=== PATIENT | female | born 1950 | race Caucasian/White ===

== ENCOUNTER 2022-01-01 12:06 | Inpatient (IN) | payer OTHER, MEDICARE ==
[2022-01-01] VITALS (7 sets, daily range): BP systolic 134–168; BP diastolic 74–133
[~2022-01-01] VITALS: Ht 157.5 cm; Wt 94.8 kg
[2022-01-01] MEDS ORDERED: SODIUM CHLORIDE 0.9% 1,000 ML IV ONE (12:30)
[2022-01-01] MEDS ORDERED: DILTIAZEM 125MG/125ML PMX 125 ML IV PRN (12:45)
[2022-01-01 12:58] LABS: BASOPHILS % 0.7 % (0.0-2.0); EOSINOPHILS % 0.4 % (0.0-5.0); HEMATOCRIT. 45.7 % (36.0-48.0); HEMOGLOBIN. 14.6 g/dL (12.0-16.0); LYMPHOCYTES % 9.9 % (20.0-50.0); MEAN CORPUSCULAR HEMOGLOBIN 32.6 pg (28.0-32.0); MEAN CORPUSCULAR VOLUME 102.1 fL (81.0-99.0); MEAN PLATELET VOLUME 7.4 fl (7.4-10.4); PLATELET 341 x1000/uL (130-400); RED BLOOD CELL COUNT 4.48 mill/uL (4.2-5.4); RED CELL DISTRIBUTION WIDTH 14.1 % (11.6-14.6)
[2022-01-01 13:14] LABS: CHLORIDE 108 mEq/L (98-107)
[2022-01-01 13:28] LABS: T4 FREE 1.32 ng/dL (0.76-1.46)
[2022-01-01] MEDS ORDERED: AMIODARONE HCL 900 MG in DEXT 5% WATER 482 ML IV PRN (14:45)
[2022-01-01] MEDS ORDERED: ENOXAPARIN 40MG/0.4ML SYR SUBCUT SCH (17:00)
[2022-01-01] MEDS ORDERED: MORPHINE SULFATE 2 MG/ML CPJ (NOT FOR IM USE) IV PRN (17:00)
[2022-01-01] MEDS ORDERED: IPRATROPIUM/ALBUTEROL 0.5-3(2.5)MG/3ML NEB HHN PRN (17:00)
[2022-01-01] MEDS ORDERED: LORAZEPAM 0.5MG TABLET PO PRN (17:00)
[2022-01-01] MEDS ORDERED: CLONIDINE 0.1MG TABLET PO PRN (17:00)
[2022-01-01] MEDS ORDERED: MAGNESIUM/ALUMINUM HYDROXIDE/SIMETHICONE 30ML UDC PO PRN (17:00)
[2022-01-01] MEDS ORDERED: ONDANSETRON HCL 4MG/2ML INJ IV PRN (17:00)
[2022-01-01] MEDS ORDERED: ACETAMINOPHEN 325MG TABLET PO PRN ×2 (17:00)
[2022-01-01] MEDS ORDERED: IOHEXOL-350 100 ML BOTTLE ONE (17:00)
[2022-01-01] MEDS ORDERED: HYDROCODONE/ACETAMINOPHEN 5/325MG TABLET PO PRN (17:00)
[2022-01-01] MEDS ORDERED: DOCUSATE SODIUM 100MG CAPSULE PO PRN (17:00)
[2022-01-01] MEDS ORDERED: ACETAMINOPHEN 650MG SUPP PR PRN ×2 (17:00)
[2022-01-01] MEDS ORDERED: GUAIFENESIN 200MG/10ML SUGAR FREE UDC PO PRN (17:00)
[2022-01-01] MEDS: ENOXAPARIN 30MG/0.3ML SYR SUBCUT SCH (18:15)
[2022-01-01] MEDS: AMIODARONE HCL 900 MG in DEXT 5% WATER 482 ML IV PRN (19:04)
[2022-01-02] VITALS (12 sets, daily range): BP systolic 89–151; BP diastolic 62–97
[2022-01-02] MEDS: AMIODARONE HCL 900 MG in DEXT 5% WATER 482 ML IV PRN (05:30)
[2022-01-02] MEDS: ENOXAPARIN 30MG/0.3ML SYR SUBCUT SCH (05:31)
[2022-01-02 06:04] LABS: CHLORIDE 110 mEq/L (98-107)
[2022-01-02 06:24] LABS: CREATINE KINASE 76 IU/L (26-192); HDL CHOLESTEROL 41 mg/dL (40-59)
[2022-01-02 06:36] LABS: LDL CHOLESTEROL 115 mg/dL (5-100)
[2022-01-02 06:45] LABS: BASOPHILS % 0.5 % (0.0-2.0); EOSINOPHILS % 0.7 % (0.0-5.0); HEMATOCRIT. 41.4 % (36.0-48.0); LYMPHOCYTES % 13.5 % (20.0-50.0); MEAN CORPUSCULAR HEMOGLOBIN 32.9 pg (28.0-32.0); MEAN CORPUSCULAR VOLUME 97.5 fL (81.0-99.0); MEAN PLATELET VOLUME 8.2 fl (7.4-10.4); MONOCYTES % 9.2 % (2.0-8.0); NEUTROPHILS % 76.1 % (40.0-76.0); PLATELET 287 x1000/uL (130-400); RED BLOOD CELL COUNT 4.24 mill/uL (4.2-5.4); RED CELL DISTRIBUTION WIDTH 13.4 % (11.6-14.6)
[2022-01-02] MEDS ORDERED: DILTIAZEM HCL 5MG/ML 5ML VIAL IV PRN (08:15)
[2022-01-02] MEDS: ASPIRIN 81MG EC TABLET PO SCH (08:30)
[2022-01-02] MEDS ORDERED: DILTIAZEM HCL 30MG TABLET PO SCH (09:00)
[2022-01-02] MEDS ORDERED: DIGOXIN 500MCG/2ML AMP IV PRN (10:15)
[2022-01-02] MEDS ORDERED: FUROSEMIDE 40MG/4ML VIAL IVP SCH (10:30)
[2022-01-02] MEDS ORDERED: ENOXAPARIN 80MG/0.8ML SYR SUBCUT NR (10:45)
[2022-01-02] MEDS: SPIRONOLACTONE 25MG TABLET PO SCH (11:05)
[2022-01-02] MEDS: METOPROLOL TARTRATE 50MG TABLET PO SCH ×2 (11:06→21:42)
[2022-01-02 13:10] LABS: INR 1.1; PROTHROMBIN TIME 11.6 sec (9.6-11.0)
[2022-01-02] MEDS ORDERED: NALOXONE HCL 0.4MG/ML VIAL IV PRN (13:15)
[2022-01-02] MEDS: ENOXAPARIN 100MG/ML SYR SUBCUT SCH (21:27)
[2022-01-02] MEDS: AMIODARONE HCL 200 MG TABLET PO SCH (21:28)
[2022-01-03] VITALS (13 sets, daily range): BP systolic 106–142; BP diastolic 67–96
[2022-01-03] MEDS: LEVOTHYROXINE SODIUM 75MCG TABLET PO SCH (06:15)
[2022-01-03 06:23] LABS: CLARITY URINE CLEAR (CLEAR); COLOR URINE DARK YELLOW (YELLOW); KETONES URINE TRACE (NEGATIVE); LEUKOCYTE ESTERASE URINE NEGATIVE (NEGATIVE); NITRITE URINE NEGATIVE (NEGATIVE); OCCULT BLOOD URINE NEGATIVE (NEGATIVE); PH URINE 5.5 (4.5-8.0); PROTEIN URINE 2+ (NEGATIVE); SPECIFIC GRAVITY URINE 1.034 (1.005-1.030); UROBILINOGEN URINE 0.2 E.U./dL (0.2-1.0)
[2022-01-03 06:39] LABS: *AMPHETAMINES SCREEN URINE NEGATIVE (NEGATIVE); *BARBITURATES SCREEN URINE NEGATIVE (NEGATIVE); *BENZODIAZEPINES SCREEN URINE NEGATIVE (NEGATIVE); *COCAINE SCREEN URINE NEGATIVE (NEGATIVE); CANNABINOID URINE SCREEN NEGATIVE (NEGATIVE); METHADONE URINE SCREEN NEGATIVE (NEGATIVE); OPIATES URINE SCREEN NEGATIVE (NEGATIVE); PHENCYCLIDINE URINE SCREEN NEGATIVE (NEGATIVE)
[2022-01-03 08:05] LABS: CHLORIDE 108 mEq/L (98-107)
[2022-01-03 08:09] LABS: BASOPHILS % 0.5 % (0.0-2.0); EOSINOPHILS % 0.9 % (0.0-5.0); HEMATOCRIT. 40.4 % (36.0-48.0); HEMOGLOBIN. 13.4 g/dL (12.0-16.0); LYMPHOCYTES % 12.8 % (20.0-50.0); MEAN CORPUSCULAR HEMOGLOBIN 32.4 pg (28.0-32.0); MEAN CORPUSCULAR VOLUME 97.7 fL (81.0-99.0); MEAN PLATELET VOLUME 8.2 fl (7.4-10.4); MONOCYTES % 8.3 % (2.0-8.0); NEUTROPHILS % 77.5 % (40.0-76.0); PLATELET 270 x1000/uL (130-400); RED BLOOD CELL COUNT 4.14 mill/uL (4.2-5.4); RED CELL DISTRIBUTION WIDTH 13.7 % (11.6-14.6)
[2022-01-03] MEDS: ASPIRIN 81MG EC TABLET PO SCH (08:47)
[2022-01-03] MEDS: METOPROLOL TARTRATE 50MG TABLET PO SCH ×2 (08:48→21:29)
[2022-01-03] MEDS: SPIRONOLACTONE 25MG TABLET PO SCH (08:48)
[2022-01-03] MEDS: FUROSEMIDE 40MG/4ML VIAL IVP SCH ×2 (08:49→17:00)
[2022-01-03] MEDS: AMIODARONE HCL 200 MG TABLET PO SCH ×2 (08:49→21:28)
[2022-01-03] MEDS: ENOXAPARIN 100MG/ML SYR SUBCUT SCH ×2 (08:49→21:30)
[2022-01-04] VITALS (11 sets, daily range): BP systolic 105–141; BP diastolic 45–99
[2022-01-04] MEDS: LEVOTHYROXINE SODIUM 75MCG TABLET PO SCH (05:57)
[2022-01-04] MEDS: FUROSEMIDE 40MG/4ML VIAL IVP SCH ×2 (05:59→17:36)
[2022-01-04 07:04] LABS: BASOPHILS % 0.6 % (0.0-2.0); EOSINOPHILS % 1.3 % (0.0-5.0); HEMATOCRIT. 41.6 % (36.0-48.0); HEMOGLOBIN. 13.7 g/dL (12.0-16.0); MEAN CORPUSCULAR HEMOGLOBIN 32.3 pg (28.0-32.0); MEAN PLATELET VOLUME 8.2 fl (7.4-10.4); MONOCYTES % 7.8 % (2.0-8.0); NEUTROPHILS % 72.3 % (40.0-76.0); PLATELET 267 x1000/uL (130-400); RED BLOOD CELL COUNT 4.24 mill/uL (4.2-5.4); RED CELL DISTRIBUTION WIDTH 13.9 % (11.6-14.6)
[2022-01-04] MEDS: ASPIRIN 81MG EC TABLET PO SCH (08:39)
[2022-01-04] MEDS: SPIRONOLACTONE 25MG TABLET PO SCH (08:39)
[2022-01-04] MEDS: METOPROLOL TARTRATE 50MG TABLET PO SCH ×2 (08:39→21:00)
[2022-01-04] MEDS: AMIODARONE HCL 200 MG TABLET PO SCH ×2 (08:40→21:44)
[2022-01-04] MEDS: ENOXAPARIN 100MG/ML SYR SUBCUT SCH ×2 (08:52→21:43)
[2022-01-04] MEDS ORDERED: LIDOCAINE HCL/PF 1% 10 MG/ML 5ML VIAL ONE (12:54)
[2022-01-04] MEDS ORDERED: MIDAZOLAM HCL 2 MG/2 ML VIAL ONE (12:55)
[2022-01-04] MEDS ORDERED: VERAPAMIL HCL 2.5 MG/1 ML 2ML VIAL IV ONE (12:55)
[2022-01-04] MEDS ORDERED: FENTANYL CITRATE/PF 50MCG/ML 2ML VIAL ONE (12:55)
[2022-01-04] MEDS ORDERED: IODIXANOL 320MG/ML 100 ML BOTTLE IV ONE (12:55)
[2022-01-04] MEDS ORDERED: HEPARIN 1000 UNITS/ML 10ML ONE (12:55)
[2022-01-04] MEDS ORDERED: DIPHENHYDRAMINE 50MG/ML VIAL ONE (13:28)
[2022-01-04] MEDS ORDERED: ATROPINE SULFATE 1MG/10ML SYR IV PRN (15:15)
[2022-01-04] MEDS ORDERED: ACETAMINOPHEN 325MG TABLET PO PRN (15:15)
[2022-01-04] MEDS ORDERED: DIGOXIN 500MCG/2ML AMP IV NR (15:15)
[2022-01-05] VITALS (9 sets, daily range): BP systolic 111–128; BP diastolic 58–90
[2022-01-05] MEDS ORDERED: FURO20TA4 MT (01:20)
[2022-01-05] MEDS ORDERED: METO-539 PO (01:20)
[2022-01-05] MEDS ORDERED: SPIR25TA PO (01:20)
[2022-01-05] MEDS ORDERED: AMI2 PO (01:20)
[2022-01-05] MEDS: FUROSEMIDE 40MG/4ML VIAL IVP SCH (05:45)
[2022-01-05] MEDS: LEVOTHYROXINE SODIUM 75MCG TABLET PO SCH (05:50)
[2022-01-05 06:34] LABS: BASOPHILS % 0.6 % (0.0-2.0); EOSINOPHILS % 2.1 % (0.0-5.0); HEMATOCRIT. 39.6 % (36.0-48.0); HEMOGLOBIN. 13.4 g/dL (12.0-16.0); LYMPHOCYTES % 20.3 % (20.0-50.0); MEAN CORPUSCULAR HEMOGLOBIN 33.1 pg (28.0-32.0); MEAN CORPUSCULAR VOLUME 97.5 fL (81.0-99.0); MEAN PLATELET VOLUME 8.2 fl (7.4-10.4); MONOCYTES % 11.5 % (2.0-8.0); NEUTROPHILS % 65.5 % (40.0-76.0); PLATELET 240 x1000/uL (130-400); RED BLOOD CELL COUNT 4.06 mill/uL (4.2-5.4); RED CELL DISTRIBUTION WIDTH 13.4 % (11.6-14.6)
[2022-01-05 06:46] LABS: CHLORIDE 102 mEq/L (98-107)
[2022-01-05] MEDS: ENOXAPARIN 100MG/ML SYR SUBCUT SCH (08:49)
[2022-01-05] MEDS: SPIRONOLACTONE 25MG TABLET PO SCH (08:49)
[2022-01-05] MEDS: AMIODARONE HCL 200 MG TABLET PO SCH (08:49)
[2022-01-05] MEDS: ASPIRIN 81MG EC TABLET PO SCH (08:49)
[2022-01-05] MEDS: METOPROLOL TARTRATE 50MG TABLET PO SCH (08:49)
[2022-01-05] MEDS ORDERED: RIVA20TA MT (10:16)
[2022-01-05] MEDS ORDERED: DIGOXIN 500MCG/2ML AMP IV NR (11:30)
[2022-01-05] MEDS ORDERED: APIXABAN 5 MG TABLET PO SCH (17:00)
[2022-01-05] MEDS ORDERED: DIGOXIN 500MCG/2ML AMP IV SCH (18:00)
[2022-01-05] MEDS ORDERED: DIGOXIN 125MCG TABLET PO SCH (18:00)
== END 2022-01-05 16:10 | disposition home or self-care (01) | DRG 280 ==
LOC: ER 12:06 → 3WST 14:42 → EDBEDREQTM 14:46 → EDBEDREQ 14:46 → EDBEDREQSVC 14:46 → ENRESERV 15:09
PROVIDERS: ADMIT Specialist; ATTEND Specialist
PROC: B211YZZ Fluoroscopy of Multiple Coronary Arteries using Other Contrast (ICD-10-PCS; principal; 2022-01-04)
PROC: 4A023N7 Measurement of Cardiac Sampling and Pressure, Left Heart, Percutaneous Approach (ICD-10-PCS; 2022-01-04)
PROC: B34HZZ3 Ultrasonography of Right Upper Extremity Arteries, Intravascular (ICD-10-PCS; 2022-01-04)
DX: I21.4 Non-ST elevation (NSTEMI) myocardial infarction (principal); I50.21 Acute systolic (congestive) heart failure; J96.01 Acute respiratory failure with hypoxia; I31.3 Pericardial effusion (noninflammatory); J84.9 Interstitial pulmonary disease, unspecified; I42.8 Other cardiomyopathies; I11.0 Hypertensive heart disease with heart failure; I48.91 Unspecified atrial fibrillation; E78.5 Hyperlipidemia, unspecified; Z20.822 Contact with and (suspected) exposure to COVID-19; E66.9 Obesity, unspecified; I25.10 Atherosclerotic heart disease of native coronary artery without angina pectoris; E03.9 Hypothyroidism, unspecified; R59.0 Localized enlarged lymph nodes; Z28.310 Unvaccinated for COVID-19; Z79.899 Other long term (current) drug therapy; Z68.38 Body mass index [BMI] 38.0-38.9, adult
CPT/HCPCS: 36415; 71045; 71275; 80048; 80053; 80061; 80305; 81003; 82550; 83735; 83880; 84439; 84443; 84481; 84484; 85025; 85379; 87426; 93005; 93306; 93458; 93971; 99285; C1769; C1887; C1893; J0282; J1160; J1200; J1644; J1650; J1940; J2250; J2405; J3010; J3490; J7030; J7060; Q9967

== ENCOUNTER → 2022-02-02 | Outpatient (CLI) | payer OTHER, MEDICARE ==
[~2022-02-02] MED LIST: AMI2 MT; AMI2 PO; FURO20TA4 MT; METO-539 PO; RIVA20TA MT; SPIR25TA PO
== END | disposition home or self-care (01) ==
LOC: LAB 09:33
PROVIDERS: ATTEND Internal Medicine Clinical Cardiac Electrophysiology
DX: Z20.822 Contact with and (suspected) exposure to COVID-19 (principal); I48.19 Other persistent atrial fibrillation; I50.22 Chronic systolic (congestive) heart failure; I42.8 Other cardiomyopathies
CPT/HCPCS: 87426; C9803

== ENCOUNTER 2022-02-05 05:15 | Inpatient (IN) | payer OTHER, MEDICARE ==
[~2022-02-05] VITALS: Ht 154.9 cm; Wt 91.6 kg
[2022-02-05] MEDS ORDERED: POTA10CA42 PO (07:07)
[2022-02-05] MEDS ORDERED: LEVO125T8 PO (07:07)
[2022-02-05] MEDS ORDERED: DIGO125T80 MT (07:07)
[2022-02-05] MEDS ORDERED: METO100T16 PO (07:07)
[2022-02-05] MEDS ORDERED: RIVA20TA PO (07:07)
[2022-02-05] MEDS ORDERED: SPIR25TA6 PO (07:07)
[2022-02-05] MEDS ORDERED: FURO-152 PO (07:07)
[2022-02-05 07:18] LABS: HEMATOCRIT 46.8 % (36.0-48.0); HEMOGLOBIN 15.9 g/dL (12.0-16.0); MEAN CORPUSCULAR HEMOGLOBIN 32.8 pg (28.0-32.0); MEAN CORPUSCULAR VOLUME 96.4 fL (81.0-99.0); PLATELET 317 x1000/uL (130-400); RED BLOOD CELL COUNT 4.85 mill/uL (4.2-5.4); RED CELL DISTRIBUTION WIDTH 13.3 % (11.6-14.6)
[2022-02-05] MEDS ORDERED: HEPARIN 1000 UNITS/ML 10ML ONE (07:21)
[2022-02-05] MEDS ORDERED: HEPARIN 1,000 UNITS PREMIX 1,500 ML IV ONE (07:21)
[2022-02-05] MEDS ORDERED: LIDOCAINE HCL 1% 10 MG/ML 10ML VIAL ONE (07:21)
[2022-02-05 07:23] LABS: INR 1.1; PROTHROMBIN TIME 11.8 sec (9.6-11.0)
[2022-02-05] MEDS ORDERED: SUCCINYLCHOLINE CHLORIDE 200MG/10ML IV ONE (08:00)
[2022-02-05] MEDS ORDERED: MIDAZOLAM HCL 2 MG/2 ML VIAL ONE (08:02)
[2022-02-05] MEDS ORDERED: ONDANSETRON HCL 4MG/2ML INJ ONE (08:03)
[2022-02-05] MEDS ORDERED: DEXAMETHASONE 4MG/ML 1ML VIAL ONE (08:03)
[2022-02-05] MEDS ORDERED: FENTANYL CITRATE/PF 50MCG/ML 2ML VIAL ONE (08:03)
[2022-02-05] MEDS ORDERED: CEFAZOLIN SODIUM 1000MG/VIAL ONE (08:04)
[2022-02-05] MEDS ORDERED: PROPOFOL 200MG/20ML VIAL IV ONE (08:14)
[2022-02-05] MEDS ORDERED: SEVOFLURANE 250 ML LIQUID INH ONE (08:39)
[2022-02-05] MEDS ORDERED: IBUTILIDE FUMARATE 1 MG in SODIUM CHLORIDE 0.9% 50 ML IV STA (09:35)
[2022-02-05] MEDS ORDERED: FENTANYL CITRATE/PF 50MCG/ML 2ML VIAL IV PRN ×2 (12:00→12:45)
[2022-02-05] MEDS ORDERED: RACEPINEPHRINE 2.25% 0.5ML NEB VIAL HHN NR (12:15)
[2022-02-05] MEDS ORDERED: ACETAMINOPHEN 325MG TABLET PO PRN (12:45)
[2022-02-05] MEDS ORDERED: ATROPINE SULFATE 1MG/10ML SYR IV PRN (12:45)
[2022-02-05] MEDS: DIGOXIN 125MCG TABLET PO SCH (13:03)
[2022-02-05] MEDS: DILTIAZEM HCL 60MG TABLET PO SCH ×2 (13:17→18:00)
[2022-02-05] MEDS ORDERED: TRAMADOL 50MG TABLET PO PRN (15:00)
[2022-02-05] MEDS ORDERED: ONDANSETRON HCL 4MG/2ML INJ IV PRN (15:00)
[2022-02-05 15:32] VITALS: BP 135/61
[2022-02-05 16:11] VITALS: BP 120/65
[2022-02-05] MEDS: THROAT LOZENGES-BENZOCAINE/MENTH/CETYLPYRD CL LOZENGES MM PRN (16:50)
[2022-02-05] MEDS: METOPROLOL TARTRATE 100MG TABLET PO SCH (16:58)
[2022-02-05] MEDS ORDERED: WARFARIN SODIUM 5MG TABLET PO NR (18:00)
[2022-02-05] MEDS ORDERED: DILTIAZEM HCL 60MG TABLET PO SCH (18:00)
[2022-02-05 18:11] VITALS: BP 101/62
[2022-02-05 20:17] VITALS: BP 105/54
[2022-02-05] MEDS ORDERED: NALOXONE HCL 0.4MG/ML VIAL IV PRN (20:45)
[2022-02-05] MEDS ORDERED: METOPROLOL TARTRATE 50MG TABLET PO SCH (21:00)
[2022-02-05 22:11] VITALS: BP 93/56
[2022-02-06] VITALS (13 sets, daily range): BP systolic 84–135; BP diastolic 46–79
[2022-02-06] MEDS: THROAT LOZENGES-BENZOCAINE/MENTH/CETYLPYRD CL LOZENGES MM PRN ×2 (00:56→06:53)
[2022-02-06] MEDS: DILTIAZEM HCL 60MG TABLET PO SCH ×4 (06:00→18:41)
[2022-02-06 06:22] LABS: INR 1.2
[2022-02-06 06:28] LABS: HEMATOCRIT. 43.5 % (36.0-48.0); HEMOGLOBIN. 14.6 g/dL (12.0-16.0); MEAN CORPUSCULAR HEMOGLOBIN 32.2 pg (28.0-32.0); MEAN PLATELET VOLUME 7.9 fl (7.4-10.4); PLATELET 286 x1000/uL (130-400); RED BLOOD CELL COUNT 4.54 mill/uL (4.2-5.4); RED CELL DISTRIBUTION WIDTH 13.6 % (11.6-14.6)
[2022-02-06] MEDS ORDERED: LEVOTHYROXINE SODIUM 125MCG TABLET PO SCH (07:30)
[2022-02-06] MEDS ORDERED: FUROSEMIDE 20MG TABLET PO SCH (09:00)
[2022-02-06] MEDS: METOPROLOL TARTRATE 100MG TABLET PO SCH ×2 (09:00→17:00)
[2022-02-06] MEDS: DIGOXIN 125MCG TABLET PO SCH (09:11)
[2022-02-06] MEDS: FUROSEMIDE 20MG TABLET PO SCH (09:11)
[2022-02-06] MEDS: SPIRONOLACTONE 25MG TABLET PO SCH (09:11)
[2022-02-06] MEDS: ENOXAPARIN 100MG/ML SYR SUBCUT SCH ×2 (13:50→23:13)
[2022-02-06 14:29] LABS: PLATELET ESTIMATE NORMAL
[2022-02-06] MEDS ORDERED: WARFARIN SODIUM 10MG TABLET PO NR (18:00)
[2022-02-06] MEDS ORDERED: LEVO100T9 PO (18:08)
[2022-02-06] MEDS ORDERED: DIGOXIN 500MCG/2ML AMP IV NR (23:45)
[2022-02-07] VITALS (11 sets, daily range): BP systolic 102–132; BP diastolic 52–79
[2022-02-07] MEDS: DILTIAZEM HCL 60MG TABLET PO SCH
[2022-02-07] MEDS ORDERED: DIGOXIN 500MCG/2ML AMP IV NR ×2 (03:30→07:30)
[2022-02-07 06:19] LABS: BASOPHILS % 0.4 % (0.0-2.0); EOSINOPHILS % 0.3 % (0.0-5.0); HEMATOCRIT. 39.5 % (36.0-48.0); HEMOGLOBIN. 13.5 g/dL (12.0-16.0); LYMPHOCYTES % 17.1 % (20.0-50.0); MEAN CORPUSCULAR VOLUME 96.4 fL (81.0-99.0); MONOCYTES % 10.3 % (2.0-8.0); NEUTROPHILS % 71.9 % (40.0-76.0); PLATELET 243 x1000/uL (130-400); RED CELL DISTRIBUTION WIDTH 13.4 % (11.6-14.6)
[2022-02-07] MEDS: LEVOTHYROXINE SODIUM 100MCG TABLET PO SCH (06:49)
[2022-02-07] MEDS: FUROSEMIDE 20MG TABLET PO SCH (08:02)
[2022-02-07] MEDS: SPIRONOLACTONE 25MG TABLET PO SCH (08:02)
[2022-02-07] MEDS: ENOXAPARIN 100MG/ML SYR SUBCUT SCH (08:03)
[2022-02-07] MEDS: METOPROLOL TARTRATE 100MG TABLET PO SCH ×2 (09:00→17:16)
[2022-02-07 10:55] LABS: PROTHROMBIN TIME > 100.0 sec (9.6-11.0)
[2022-02-07 11:03] LABS: INR > 10.0
[2022-02-07] MEDS: DIGOXIN 250MCG TABLET PO SCH (18:20)
[2022-02-08] VITALS (11 sets, daily range): BP systolic 105–136; BP diastolic 49–87
[2022-02-08] MEDS: LEVOTHYROXINE SODIUM 100MCG TABLET PO SCH (06:38)
[2022-02-08 07:34] LABS: BASOPHILS % 0.7 % (0.0-2.0); EOSINOPHILS % 1.2 % (0.0-5.0); HEMATOCRIT. 41.5 % (36.0-48.0); HEMOGLOBIN. 14.2 g/dL (12.0-16.0); LYMPHOCYTES % 22.1 % (20.0-50.0); MEAN CORPUSCULAR HEMOGLOBIN 32.8 pg (28.0-32.0); MEAN CORPUSCULAR VOLUME 95.6 fL (81.0-99.0); MEAN PLATELET VOLUME 7.7 fl (7.4-10.4); MONOCYTES % 11.6 % (2.0-8.0); NEUTROPHILS % 64.4 % (40.0-76.0); PLATELET 253 x1000/uL (130-400); RED BLOOD CELL COUNT 4.34 mill/uL (4.2-5.4); RED CELL DISTRIBUTION WIDTH 13.5 % (11.6-14.6)
[2022-02-08 07:41] LABS: PROTHROMBIN TIME 41.8 sec (9.6-11.0)
[2022-02-08] MEDS: METOPROLOL TARTRATE 100MG TABLET PO SCH ×2 (09:18→17:08)
[2022-02-08] MEDS: FUROSEMIDE 20MG TABLET PO SCH (09:18)
[2022-02-08] MEDS: SPIRONOLACTONE 25MG TABLET PO SCH (09:19)
[2022-02-08 10:42] LABS: INR 4.4
[2022-02-08] MEDS: DIGOXIN 250MCG TABLET PO SCH (17:53)
[2022-02-09] VITALS (8 sets, daily range): BP systolic 96–128; BP diastolic 32–72
[2022-02-09 06:36] LABS: PROTHROMBIN TIME 29.4 sec (9.6-11.0)
[2022-02-09 06:45] LABS: BASOPHILS % 0.6 % (0.0-2.0); EOSINOPHILS % 1.4 % (0.0-5.0); HEMATOCRIT. 43.4 % (36.0-48.0); HEMOGLOBIN. 14.7 g/dL (12.0-16.0); LYMPHOCYTES % 16.4 % (20.0-50.0); MEAN CORPUSCULAR HEMOGLOBIN 32.4 pg (28.0-32.0); MEAN CORPUSCULAR VOLUME 95.7 fL (81.0-99.0); MEAN PLATELET VOLUME 7.7 fl (7.4-10.4); MONOCYTES % 10.5 % (2.0-8.0); NEUTROPHILS % 71.1 % (40.0-76.0); PLATELET 277 x1000/uL (130-400); RED BLOOD CELL COUNT 4.54 mill/uL (4.2-5.4); RED CELL DISTRIBUTION WIDTH 13.2 % (11.6-14.6)
[2022-02-09] MEDS: FUROSEMIDE 20MG TABLET PO SCH (08:47)
[2022-02-09] MEDS: SPIRONOLACTONE 25MG TABLET PO SCH (08:47)
[2022-02-09] MEDS: METOPROLOL TARTRATE 100MG TABLET PO SCH ×2 (08:47→17:41)
[2022-02-09] MEDS: LEVOTHYROXINE SODIUM 100MCG TABLET PO SCH (08:47)
[2022-02-09] MEDS: DIGOXIN 250MCG TABLET PO SCH (17:41)
[2022-02-09] MEDS ORDERED: WARFARIN SODIUM 3MG TABLET PO SCH (18:00)
[2022-02-10] VITALS (11 sets, daily range): BP systolic 101–135; BP diastolic 54–87
[2022-02-10] MEDS: LEVOTHYROXINE SODIUM 100MCG TABLET PO SCH (07:53)
[2022-02-10] MEDS: SPIRONOLACTONE 25MG TABLET PO SCH (07:54)
[2022-02-10] MEDS: METOPROLOL TARTRATE 100MG TABLET PO SCH ×2 (07:57→16:44)
[2022-02-10 08:58] LABS: BASOPHILS % 0.6 % (0.0-2.0); EOSINOPHILS % 1.7 % (0.0-5.0); HEMATOCRIT. 45.4 % (36.0-48.0); HEMOGLOBIN. 15.4 g/dL (12.0-16.0); LYMPHOCYTES % 14.7 % (20.0-50.0); MEAN CORPUSCULAR HEMOGLOBIN 32.3 pg (28.0-32.0); MEAN CORPUSCULAR VOLUME 95.4 fL (81.0-99.0); MEAN PLATELET VOLUME 7.5 fl (7.4-10.4); MONOCYTES % 9.6 % (2.0-8.0); NEUTROPHILS % 73.4 % (40.0-76.0); PLATELET 315 x1000/uL (130-400); RED BLOOD CELL COUNT 4.76 mill/uL (4.2-5.4); RED CELL DISTRIBUTION WIDTH 13.3 % (11.6-14.6)
[2022-02-10] MEDS ORDERED: DOCUSATE SODIUM 100MG CAPSULE PO SCH (09:00)
[2022-02-10 09:06] LABS: PROTHROMBIN TIME 29.8 sec (9.6-11.0)
[2022-02-10] MEDS: FUROSEMIDE 20MG TABLET PO SCH (11:49)
[2022-02-10] MEDS: DIGOXIN 250MCG TABLET PO SCH (16:45)
[2022-02-10] MEDS ORDERED: WARFARIN SODIUM 3MG TABLET PO NR (18:00)
== END 2022-02-10 18:30 | disposition home or self-care (01) | DRG 274 ==
LOC: CCL 05:15 → 5EST 05:16
PROVIDERS: ADMIT Internal Medicine Clinical Cardiac Electrophysiology; ATTEND Internal Medicine Clinical Cardiac Electrophysiology
PROC: 02583ZZ Destruction of Conduction Mechanism, Percutaneous Approach (ICD-10-PCS; principal; 2022-02-05)
PROC: 4A023FZ Measurement of Cardiac Rhythm, Percutaneous Approach (ICD-10-PCS; 2022-02-05)
PROC: 4A0234Z Measurement of Cardiac Electrical Activity, Percutaneous Approach (ICD-10-PCS; 2022-02-05)
PROC: 02K83ZZ Map Conduction Mechanism, Percutaneous Approach (ICD-10-PCS; 2022-02-05)
PROC: 04HY32Z Insertion of Monitoring Device into Lower Artery, Percutaneous Approach (ICD-10-PCS; 2022-02-05)
PROC: B24BZZZ Ultrasonography of Heart with Aorta (ICD-10-PCS; 2022-02-05)
DX: I48.4 Atypical atrial flutter (principal); E87.1 Hypo-osmolality and hyponatremia; I50.22 Chronic systolic (congestive) heart failure; I48.11 Longstanding persistent atrial fibrillation; I42.0 Dilated cardiomyopathy; E03.9 Hypothyroidism, unspecified; I51.3 Intracardiac thrombosis, not elsewhere classified; E66.9 Obesity, unspecified; E78.5 Hyperlipidemia, unspecified; I11.0 Hypertensive heart disease with heart failure; Z68.38 Body mass index [BMI] 38.0-38.9, adult
CPT/HCPCS: 36415; 80048; 80162; 85025; 85027; 93005; 93653; 93662; 94640; 94664; C1730; C1731; C1759; C1893; C2630; J0330; J0690; J1100; J1160; J1644; J1650; J2250; J2405; J2704; J3010; J3490

== ENCOUNTER 2022-03-21 12:09 | Emergency (ER) | payer MEDICARE, OTHER ==
[~2022-03-21] VITALS: Ht 157.5 cm; Wt 85.0 kg
[~2022-03-21 12:09] MED LIST changes: -AMI2 MT; -AMI2 PO; +FURO-152 PO; -FURO20TA4 MT; +LEVO100T9 PO; +POTA10CA42 PO; -RIVA20TA MT
[2022-03-21 13:16] LABS: BASOPHILS % 0.6 % (0.0-2.0); EOSINOPHILS % 0.9 % (0.0-5.0); HEMOGLOBIN. 14.6 g/dL (12.0-16.0); LYMPHOCYTES % 15.7 % (20.0-50.0); MEAN CORPUSCULAR HEMOGLOBIN 32.9 pg (28.0-32.0); MEAN CORPUSCULAR VOLUME 96.5 fL (81.0-99.0); MONOCYTES % 9.9 % (2.0-8.0); NEUTROPHILS % 72.9 % (40.0-76.0); PLATELET 322 x1000/uL (130-400); RED BLOOD CELL COUNT 4.45 mill/uL (4.2-5.4); RED CELL DISTRIBUTION WIDTH 13.8 % (11.6-14.6)
[2022-03-21 13:24] LABS: CHLORIDE 105 mEq/L (98-107)
[2022-03-21 13:43] LABS: INR 2.6; PROTHROMBIN TIME 25.5 sec (9.6-11.0)
[2022-03-21 14:18] VITALS: BP 96/56
== END 2022-03-21 15:10 | disposition home or self-care (01) ==
LOC: ER 14:01
DX: R79.1 Abnormal coagulation profile (principal); I48.91 Unspecified atrial fibrillation; I10 Essential (primary) hypertension; E03.9 Hypothyroidism, unspecified; Z79.01 Long term (current) use of anticoagulants
CPT/HCPCS: 36415; 80053; 85025; 93005; 99284